=== PATIENT | male | born 1960 | race Caucasian/White ===

== ENCOUNTER 2020-07-01 11:41 | Emergency (ER) | payer MEDICAID ==
[~2020-07-01] VITALS: Ht 180.3 cm; Wt 83.9 kg
[2020-07-01 11:51] VITALS: BP 154/78
--- NOTE | 2020-07-01 12:11 | NUR ---
60 Y/O MALE TESTED COVID + TWO WEEKS AGO, IS EXPERIENCING MILD SOB WITH WHEEZING. NO RESP DISTRESS AT THIS TIME. VSS. WHEEZING HEARD IN BILAT LOBES. DENIES ANY CHEST PAIN.
[2020-07-01 12:28] VITALS: BP 154/78
--- NOTE | 2020-07-01 12:28 | NUR ---
Patient discharged with v/s stable. Written and verbal after care instructions given and explained. Patient alert, oriented and verbalized understanding of instructions. Ambulatory with steady gait. All questions addressed prior to discharge. ID band removed. Patient advised to follow up with PMD. Rx of ATARAX, PREDNISONE given. Patient educated on indication of medication including possible reaction and side effects. Opportunity to ask questions provided and answered.
== END 2020-07-01 12:28 | disposition home or self-care (01) ==
LOC: MED 11:41
DX: U07.1 COVID-19 (principal); F41.9 Anxiety disorder, unspecified; R06.2 Wheezing
CPT/HCPCS: 99283

== ENCOUNTER 2023-05-30 23:52 | Emergency (ER) | payer MEDICAID, OTHER ==
[~2023-05-30] VITALS: Ht 165.1 cm; Wt 83.9 kg
[2023-05-31 00:30] VITALS: BP 150/69; PULSE 76; RESP 17; TEMP 97.8; O2SAT 98
[2023-05-31 01:29] LABS: APPEARANCE,URINE CLEAR (CLEAR); BILIRUBIN,URINE NEGATIVE (NEGATIVE); BLOOD, URINE TRACE-I (NEGATIVE); COLOR,URINE YELLOW (YELLOW); LEUKOCYTE ESTERASE ,URINE NEGATIVE (NEGATIVE); NITRITE, URINE NEGATIVE (NEGATIVE); PROTEIN,URINE TRACE (NEGATIVE); UGLUCOSE 3+ (NEGATIVE); UROBILINOGEN,URINE 0.2 EU/dL (0.2 - 1)
[2023-05-31 01:44] LABS: BACTERIA,URINE 10-30 (MOD) /HPF (None Seen); MUCUS,URINE 1+ /LPF (None Seen); RBC,URINE 0-5 /HPF (0-5); SQUAMOUS EPITHELIAL CELL,UR 0-3 (FEW) /LPF (0-3 (FEW)); WBC,URINE 0-5 /HPF (0-5)
[2023-05-31] MEDS ORDERED: MORPHINE SULFATE 4 MG/ML SYR IVP ONE ×3 (02:05→11:35)
[2023-05-31] MEDS ORDERED: NACL 0.9% 1,000 ML IV ONE (02:05)
[2023-05-31] MEDS ORDERED: ONDANSETRON 4 MG/2 ML VIAL IVP ONE (02:05)
[2023-05-31 02:06] LABS: BASOPHILS % (AUTO) 0.1 % (0.0-2.0); HEMATOCRIT 38.7 % (36-52); LYMPHOCYTES # (AUTO) 0.8 K/uL (2.0-11.5); MEAN CORPUSCULAR HEMOGLOBIN 32 pg (27-31); MEAN CORPUSCULAR HGB CONC 34 g/dL (33-37); MONOCYTES # (AUTO) 0.4 K/uL (0.8-1.0); MONOCYTES % (AUTO) 2.9 % (1.7-9.3); NEUTROPHILS # (AUTO) 10.8 K/uL (1.8-7.7); PLATELET COUNT (AUTO) 336 K/uL (140-450); RED BLOOD CELL COUNT(AUTO) 4.03 MIL/uL (4.20-6.10); RED CELL DISTRIBUTION WIDTH 13.2 % (11.6-13.7)
[2023-05-31 02:21] LABS: ALANINE AMINOTRANSFERASE 41 U/L (12-78); ALBUMIN 4.3 g/dL (3.4-5.0); ALKALINE PHOSPHATASE 79 U/L (50-136); ANION GAP 14.7 (8-16); ASPARTATE AMINOTRANSFERASE 21 U/L (15-37); CALCIUM 9.1 mg/dL (8.5-10.1); CARBON DIOXIDE 28.4 mmol/L (21-32); CHLORIDE 98 mmol/L (98-107); CREATININE 0.9 mg/dL (0.6-1.3); GFR ARICAN-AMERICAN 109 mL/min (>90); GFR NON ARICAN-AMERICAN 90 mL/min (>90); GLUCOSE 255 mg/dL (74-106); LIPASE 19 U/L (16-77); POTASSIUM 4.1 mmol/L (3.5-5.1); SODIUM SERUM 137 mmol/L (136-145); TOTAL BILIRUBIN 0.6 mg/dL (0.0-1.0); TOTAL PROTEIN, SERUM 8.3 g/dL (6.4-8.2); UREA NITROGEN, BLOOD 18 mg/dL (7-18)
[2023-05-31] MEDS ORDERED: KETOROLAC 30 MG/ML VIAL IVP ONE (03:45)
[2023-05-31] MEDS ORDERED: metroNIDAZOLE 500 MG/NS PREMIX 100 ML IV ONE (06:45)
[2023-05-31 08:30] LABS: LACTIC ACID 2.1 mmol/L (0.4-2.0)
[2023-05-31] MEDS ORDERED: MORPHINE SULFATE 4 MG/ML SYR ONE (08:35)
[2023-05-31] MEDS ORDERED: cefTRIAXone 1,000 MG VIAL ONE (08:35)
[2023-05-31] MEDS ORDERED: NACL 0.9% 2,000 ML IV ONE (08:40)
[2023-05-31 12:03] VITALS: BP 154/84; PULSE 101; RESP 17; TEMP 98.1; O2SAT 98
== END 2023-05-31 10:17 | disposition short-term general hospital (02) ==
LOC: MED 23:52
DX: K80.20 Calculus of gallbladder without cholecystitis without obstruction (principal); R11.2 Nausea with vomiting, unspecified; Z98.890 Other specified postprocedural states
CPT/HCPCS: 36415; 74177; 80053; 81001; 83605; 83690; 84484; 85025; 87040; 93005; 93976; 96361; 96365; 96367; 96375; 96376; 99291; J0696; J1885; J2270; J2405; J3490; J7030; Q9967